=== PATIENT | female | born 1965 | race African-American/Black ===

== ENCOUNTER 2018-03-25 08:23 | Inpatient (IN) ==
[2018-03-25] MEDS ORDERED: ONDANSETRON 4 MG/2 ML VIAL IV PRN (08:59)
[2018-03-25] MEDS ORDERED: SODIUM CHLORIDE 0.9% 1,000 ML IV STA (08:59)
[2018-03-25 09:06] LABS: Basophils % 0.3 % (0.0-0.8); Eosinophils # 0.1 10*3/uL (0.0-0.87); Eosinophils % 0.6 % (0.00-10.9); Hematocrit 44.1 VOL% (35.7-47.0); Hemoglobin 15.2 GM/DL (12.0-16.0); Immature Granulocytes % 0.4 %; Immature Granulocytes Absolute 0.04 #; Lymphocytes # 3.6 10*3/uL (1.4-4.0); Lymphocytes % 36.5 % (21.3-54.2); Mean Corpuscular HGB Conc 34.5 GM/DL (32-36); Mean Corpuscular Hemoglobin 32 PG (27-34); Mean Corpuscular Volume 91.5 FL (87-102); Mean Platelet Volume 9.9 FL (9.6-12.0); Monocytes # 0.6 10*3/uL (0.11-0.8); Monocytes % 5.7 % (1.7-12.7); Neutrophils # 5.5 10*3/uL (1.4-7.4); Neutrophils % 56.5 % (38.7-73.9); Platelet Count 341 T/CUMM (130-400); Red Blood Count 4.82 MC/CUMM (3.8-5.5); Red Cell Distribution Width 12.4 % (9.3-17.3); White Blood Count 9.8 T/CUMM (4-12)
[2018-03-25 09:15] LABS: INR 0.9; PT Patient Result 9.9 SECS; Partial Thromboplastin Time 25.2 SECS (0-40)
[2018-03-25 09:25] LABS: Alanine Aminotransferase 16 U/L (13-56); Alkaline Phosphatase 169 U/L (45-117); Aspartate Amino Transferase 15 U/L (0-37); Blood Urea Nitrogen 10 MG/DL (7-18); Glucose 351 MG/DL (74-106); Potassium 3.6 MMOL/L (3.5-5.1); Sodium 136 MMOL/L (136-145)
[2018-03-25] MEDS ORDERED: GLUCAGON 1 MG VIAL IM PRN (10:48)
[2018-03-25] MEDS ORDERED: DEXTROSE 50% 25 GM/50 ML VIAL IV PRN (10:48)
[2018-03-25] MEDS ORDERED: LABETALOL 20 MG/4 ML SYRINGE IV PRN (10:51)
[2018-03-25 11:35] LABS: Risk Ratio 4.71; VLDL CHOLESTEROL 39.8 MG/DL
[2018-03-25 13:17] LABS: Barbiturates Screen,Urine Negative (Negative); Benzodiazepines Screen,Urine Negative (Negative); Cannabinoid Screen,Urine Negative (Negative); Opiate Screen,Urine Negative (Negative); Phencyclidine Screen,Urine Negative (Negative)
[2018-03-25 13:31] LABS: Apearance,Urine Slightly Hazy (Clear); Bacteria,Urine Occasional /HPF (Few); Bilirubin,Urine Negative (Negative); Blood, Urine Small mg/dL (Negative); Glucose,Urine (UA) >=500 mg/dL (Negative); Ketones,Urine 20 mg/dL (Negative); Nitrite,Urine Negative (Negative); Protein,Urine Negative; RBC,Urine 2 /HPF (0-4); Squamous Epithelial Cell,Urine Occasional /HPF (0-10); Urine Color Straw (Yellow); Urine Specific Gravity 1.039 (1.001-1.035); Urine Urobilinogen < 2.0 EU/DL (0.2-1.0); WBC,Urine 68 /HPF (0-6)
[2018-03-25] MEDS ORDERED: INFLUENZA VIRUS VACCINE 0.5 ML SYRINGE IM ONE (15:30)
[2018-03-25] MEDS: ACETAMINOPHEN 325 MG TABLET PO PRN ×2 (15:38→20:24)
[2018-03-25] MEDS: INSULIN REGULAR 100 UNIT/ML SUBCUT SCH ×3 (16:37→21:28)
[2018-03-25] MEDS: SODIUM CHLORIDE 0.9% 1,000 ML IV SCH ×2 (16:38→20:34)
[2018-03-25] MEDS: ROSUVASTATIN 20 MG TABLET PO SCH (20:24)
[2018-03-26] MEDS: ACETAMINOPHEN 325 MG TABLET PO PRN ×3 (04:11→20:26)
[2018-03-26] MEDS: SODIUM CHLORIDE 0.9% 1,000 ML IV SCH (04:12)
[2018-03-26 04:56] LABS: Basophils % 0.2 % (0.0-0.8); Eosinophils # 0.1 10*3/uL (0.0-0.87); Eosinophils % 1.3 % (0.00-10.9); Hematocrit 37.6 VOL% (35.7-47.0); Hemoglobin 12.5 GM/DL (12.0-16.0); Immature Granulocytes % 0.2 %; Immature Granulocytes Absolute 0.02 #; Lymphocytes # 3.7 10*3/uL (1.4-4.0); Lymphocytes % 42.4 % (21.3-54.2); Mean Corpuscular HGB Conc 33.2 GM/DL (32-36); Mean Corpuscular Hemoglobin 31 PG (27-34); Mean Corpuscular Volume 91.9 FL (87-102); Mean Platelet Volume 10.3 FL (9.6-12.0); Monocytes # 0.6 10*3/uL (0.11-0.8); Monocytes % 6.8 % (1.7-12.7); Neutrophils # 4.3 10*3/uL (1.4-7.4); Neutrophils % 49.1 % (38.7-73.9); Platelet Count 287 T/CUMM (130-400); Red Blood Count 4.09 MC/CUMM (3.8-5.5); Red Cell Distribution Width 12.4 % (9.3-17.3); White Blood Count 8.8 T/CUMM (4-12)
[2018-03-26 05:29] LABS: Calcium 8.5 MG/DL (8.5-10.1); Osmolality,Calculated 280.7 MOS/KG (273-304); Potassium 3.6 MMOL/L (3.5-5.1)
[2018-03-26] MEDS ORDERED: diphenhydrAMINE 50 MG/1 ML VIAL IV ONE (08:00)
[2018-03-26] MEDS ORDERED: LORazepam 2 MG/1 ML VIAL IV ONE (08:00)
[2018-03-26] MEDS: INSULIN REGULAR 100 UNIT/ML SUBCUT SCH ×4 (09:05→20:25)
[2018-03-26] MEDS: INSULIN GLARGINE 100 UNIT/ML SUBCUT SCH (09:06)
[2018-03-26] MEDS: PANTOPRAZOLE 40 MG TABLET PO SCH (09:07)
[2018-03-26] MEDS: CHOLECALCIFEROL 5,000 UNIT TABLET PO SCH (09:07)
[2018-03-26] MEDS: ASPIRIN EC 81 MG TABLET PO SCH (09:07)
[2018-03-26] MEDS: cefTRIAXone 2,000 MG in SYRINGE 1 EACH IV SCH (12:18)
[2018-03-26] MEDS: ROSUVASTATIN 20 MG TABLET PO SCH (20:25)
[2018-03-27] MEDS: ACETAMINOPHEN 325 MG TABLET PO PRN (03:52)
[2018-03-27] MEDS: INSULIN REGULAR 100 UNIT/ML SUBCUT SCH ×2 (09:08→11:42)
[2018-03-27] MEDS: PANTOPRAZOLE 40 MG TABLET PO SCH (09:09)
[2018-03-27] MEDS: INSULIN GLARGINE 100 UNIT/ML SUBCUT SCH (09:09)
[2018-03-27] MEDS: CHOLECALCIFEROL 5,000 UNIT TABLET PO SCH (09:10)
[2018-03-27] MEDS: ASPIRIN EC 81 MG TABLET PO SCH (09:10)
[2018-03-27] MEDS: cefTRIAXone 2,000 MG in SYRINGE 1 EACH IV SCH (11:41)
[2018-03-27] MEDS ORDERED: INSULIN LISPRO 100 UNIT/ML SUBCUT SCH (12:00)
[2018-03-27 12:08] VITALS: BP 139/63
[2018-03-27] MEDS ORDERED: NITROFURANTOIN MACRO/MONO 100 MG CAPSULE PO SCH (21:00)
== END 2018-03-27 13:40 | DRG 45 ==
LOC: N.ED 08:23 → N.EDINP 10:48 → SUATTDRO 10:48 → N.4E 11:53
PROVIDERS: ATTEND Hospitalist

== ENCOUNTER 2019-12-03 12:16 | Inpatient (IN) ==
[2019-12-03] MEDS ORDERED: SODIUM CHLORIDE 0.9% 1,000 ML IV STA ×2 (12:53→14:46)
[2019-12-03 13:58] LABS: Basophils # 0.1 10*3/uL (0.0-0.2); Basophils % 0.3 % (0.0-0.8); Hemoglobin 7.8 GM/DL (12.0-16.0); Immature Granulocytes Absolute 1.46 #; Lymphocytes # 1.8 10*3/uL (1.4-4.0); Lymphocytes % 3.7 % (21.3-54.2); Mean Corpuscular HGB Conc 32.5 GM/DL (32-36); Mean Corpuscular Volume 91.3 FL (87-102); Mean Platelet Volume 8.8 FL (9.6-12.0); Monocytes % 2.2 % (1.7-12.7); Neutrophils % 90.8 % (38.7-73.9); Platelet Count 436 T/CUMM (130-400); Red Blood Count 2.63 MC/CUMM (3.8-5.5)
[2019-12-03 14:12] LABS: White Blood Count 48.9 T/CUMM (4-12)
[2019-12-03 14:13] LABS: Apearance,Urine CLOUDY (Clear); Bilirubin,Urine Negative (Negative); Blood, Urine Moderate mg/dL (Negative); Glucose,Urine (UA) Negative (Negative); Ketones,Urine Negative (Negative); Nitrite,Urine Negative (Negative); Protein,Urine 100 MG/DL; Urine Color Amber (Yellow); Urine Specific Gravity 1.025 (1.001-1.035); Urine Urobilinogen < 2.0 EU/DL (0.2-1.0); WBC,Urine 3257 /HPF (0-6)
[2019-12-03] MEDS ORDERED: cefTRIAXone 1,000 MG in SODIUM CHLORIDE 0.9% 100 ML IV STA (14:19)
[2019-12-03 14:20] LABS: Alanine Aminotransferase 15 U/L (13-56); Albumin 1.6 G/DL (3.4-5.0); Alkaline Phosphatase 242 U/L (45-117); Aspartate Amino Transferase 37 U/L (0-37); Bilirubin,Total < 0.39 MG/DL (0.2-1.0); Blood Urea Nitrogen 36 MG/DL (7-18); Calcium 9.2 MG/DL (8.5-10.1); Estimated Glom Filtration Rate 49 ML/MIN; Glucose 224 MG/DL (74-106); Osmolality,Calculated 271.1 MOS/KG (273-304); Total Protein 7.7 G/DL (6.4-8.3)
[2019-12-03 14:54] LABS: Band Neutrophils 4 % (0-10); Lymphocytes 3 % (20-55); Platelet Estimate Increased; Segmented Neutrophils 91 % (50-85); Total Cells Counted 100
[2019-12-03] MEDS ORDERED: ONDANSETRON 4 MG/2 ML VIAL IV PRN (15:29)
[2019-12-03] MEDS ORDERED: DEXTROSE 50% 25 GM/50 ML VIAL IV PRN (15:29)
[2019-12-03] MEDS ORDERED: GLUCAGON 1 MG VIAL IM PRN (15:29)
[2019-12-03] MEDS: PANTOPRAZOLE 40 MG TABLET PO SCH (16:50)
[2019-12-03] MEDS: ENOXAPARIN 40 MG/0.4 ML SYRINGE SUBCUT SCH (16:51)
[2019-12-03] MEDS: SODIUM CHLORIDE 0.9% 1,000 ML IV SCH (16:51)
[2019-12-03] MEDS ORDERED: LEVOFLOXACIN INJ 750 MG in PREMIX 1 EACH IV STA (17:00)
[2019-12-03] MEDS: INSULIN LISPRO 100 UNIT/ML SUBCUT SCH ×3 (20:36→20:48)
[2019-12-03] MEDS ORDERED: SODIUM CHLORIDE 0.9% 1,000 ML IV ONE (23:39)
[2019-12-04] MEDS ORDERED: ALBUMIN 25% 50 GM in PREMIX 1 EACH IV ONE (01:37)
[2019-12-04] MEDS ORDERED: ALBUMIN 5% 25 GM in PREMIX 1 EACH IV ONE (01:41)
[2019-12-04 02:17] LABS: Basophils # 0.1 10*3/uL (0.0-0.2); Basophils % 0.3 % (0.0-0.8); Hematocrit 23.4 VOL% (35.7-47.0); Hemoglobin 7.3 GM/DL (12.0-16.0); Immature Granulocytes Absolute 1.21 #; Mean Corpuscular HGB Conc 31.2 GM/DL (32-36); Mean Corpuscular Volume 94.4 FL (87-102); Monocytes % 2.9 % (1.7-12.7); Neutrophils % 88.8 % (38.7-73.9); Platelet Count 388 T/CUMM (130-400); Red Blood Count 2.48 MC/CUMM (3.8-5.5); Red Cell Distribution Width 15.2 % (9.3-17.3)
[2019-12-04 02:18] LABS: White Blood Count 40.3 T/CUMM (4-12)
[2019-12-04 02:41] LABS: Blood Urea Nitrogen 38 MG/DL (7-18); Calcium 8.6 MG/DL (8.5-10.1); Estimated Glom Filtration Rate 46 ML/MIN; Glucose 65 MG/DL (74-106); Osmolality,Calculated 274.2 MOS/KG (273-304); Troponin I < 0.015 NG/ML (0.00-0.045)
[2019-12-04 03:17] LABS: Band Neutrophils 1 % (0-10); Lymphocytes 3 % (20-55); Platelet Estimate Normal; Segmented Neutrophils 94 % (50-85); Total Cells Counted 100
[2019-12-04 03:18] LABS: Burr Cells Few; Hypochromasia Slight; Microcytosis Slight
[2019-12-04] MEDS: SODIUM CHLORIDE 0.9% 1,000 ML IV SCH ×3 (04:27→13:28)
[2019-12-04] MEDS ORDERED: MAGNESIUM SULF RIDER 2 GM in PREMIX 1 EACH IV PRN (06:53)
[2019-12-04] MEDS: INSULIN LISPRO 100 UNIT/ML SUBCUT SCH ×3 (07:19→16:47)
[2019-12-04] MEDS ORDERED: NOREPINEPHRINE 4 MG/4 ML VIAL IV ONE ×2 (07:34→21:04)
[2019-12-04] MEDS: NOREPINEPHRINE 8 MG in SODIUM CHLORIDE 0.9% 242 ML IV PRN ×2 (07:39→21:06)
[2019-12-04] MEDS: MORPHINE 4 MG/1 ML VIAL IV PRN ×2 (07:41→14:01)
[2019-12-04] MEDS ORDERED: cefTRIAXone 1,000 MG in SYRINGE 1 EACH IV SCH (09:00)
[2019-12-04] MEDS: PANTOPRAZOLE 40 MG TABLET PO SCH (09:32)
[2019-12-04] MEDS: FLUDROCORTISONE 0.1 MG TABLET PO SCH ×2 (09:32→21:46)
[2019-12-04] MEDS ORDERED: BUPIVACAINE 0.25% /EPI 10 ML VIAL ONE (09:55)
[2019-12-04] MEDS ORDERED: LIDOCAINE 1%/EPI INJ 20 ML VIAL ONE ×2 (09:56→11:15)
[2019-12-04] MEDS: HYDROCORTISONE 100 MG VIAL IV SCH ×3 (09:56→21:50)
[2019-12-04] MEDS: VANCOMYCIN INJ 1,000 MG in SODIUM CHLORIDE 0.9% 250 ML IV SCH ×2 (09:57→21:46)
[2019-12-04] MEDS ORDERED: DEXTROSE 10% 250 ML IV ONE (10:00)
[2019-12-04] MEDS ORDERED: DEXTROSE 10% 1,000 ML IV SCH (10:30)
[2019-12-04] MEDS: DEXTROSE 10% 250 ML IV SCH ×4 (10:41→10:44)
[2019-12-04] MEDS ORDERED: BUPIVACAINE MPF 0.25% 30 ML VIAL ONE (11:15)
[2019-12-04] MEDS ORDERED: ALBUMIN 5% 12.5 GM/250 ML VIAL IV ONE (11:28)
[2019-12-04] MEDS ORDERED: KETAMINE 500 MG/10 ML VIAL ONE (12:25)
[2019-12-04] MEDS ORDERED: fentaNYL 100 MCG/2 ML VIAL ONE (12:25)
[2019-12-04] MEDS ORDERED: MIDAZOLAM 2 MG/2 ML VIAL ONE (12:25)
[2019-12-04] MEDS ORDERED: ETOMIDATE 40 MG/20 ML VIAL IV ONE (12:26)
[2019-12-04 12:31] LABS: Apearance,Urine CLOUDY (Clear); Bilirubin,Urine Negative (Negative); Blood, Urine Large mg/dL (Negative); Glucose,Urine (UA) Negative (Negative); Ketones,Urine Negative (Negative); Nitrite,Urine Negative (Negative); Protein,Urine 100 MG/DL; Squamous Epithelial Cell,Urine Few /HPF (0-10); Urine Color Yellow (Yellow); Urine Urobilinogen < 2.0 EU/DL (0.2-1.0); WBC,Urine 5446 /HPF (0-6)
[2019-12-04] MEDS ORDERED: ETOMIDATE 20 MG/10 ML VIAL IV ONE ×2 (15:22→15:30)
[2019-12-04] MEDS ORDERED: ROCURONIUM 100 MG/10 ML VIAL IV ONE ×2 (15:23→15:30)
[2019-12-04] MEDS ORDERED: HEPARIN/NACL 0.9% 2 UNITS/ML 500 ML IV ONE (15:43)
[2019-12-04] MEDS ORDERED: MIDAZOLAM 100 MG in SODIUM CHLORIDE 0.9% 80 ML IV PRN (16:00)
[2019-12-04] MEDS: ENOXAPARIN 40 MG/0.4 ML SYRINGE SUBCUT SCH (16:52)
[2019-12-04 16:58] LABS: ABG Base Excess -21.1 MMOL/L (-2.5-2.5); ABG HCO3 8.8 MMOL/L (20-26); ABG Oxygen Saturation 99.5 % (95-100); ABG PCO2 24.3 MM HG (35-48); ABG TCO2 7.2 MMOL/L (23-27); Allen Test Positive; Pt O2 Delivery Device Ventilator
[2019-12-04] MEDS ORDERED: SODIUM BICARB INJ 100 MEQ in STERILE WATER INJ 1,000 ML IV SCH (17:30)
[2019-12-04] MEDS ORDERED: AMIODARONE 150 MG/3 ML VIAL ONE (18:17)
[2019-12-04] MEDS ORDERED: AMIODARONE INJ 150 MG in DEXTROSE 5% 100 ML IV ONE (18:20)
[2019-12-04 19:42] LABS: Hematocrit 26.7 VOL% (35.7-47.0); Hemoglobin 7.8 GM/DL (12.0-16.0)
[2019-12-04] MEDS ORDERED: PHENYLEPHRINE DRIP 40 MG/250 ML PREMIX IV PRN (20:39)
[2019-12-04 20:52] VITALS: BP 86/25
[2019-12-04] MEDS ORDERED: CALCIUM CHLORIDE 1,000 MG/10 ML SYRINGE IV ONE (21:03)
[2019-12-04] MEDS ORDERED: SODIUM BICARBONATE 50 MEQ/50 ML SYRINGE IV ONE (21:03)
[2019-12-04] MEDS ORDERED: EPINEPHrine 1 MG/10 ML SYRINGE ONE ×2 (21:03)
[2019-12-04] MEDS ORDERED: EPINEPHrine 1 MG/ML VIAL ONE (21:12)
[2019-12-05] MEDS ORDERED: INSULIN LISPRO 100 UNIT/ML SUBCUT SCH
[2019-12-05] MEDS ORDERED: MULTIVITAMIN (CENTRUM) TABLET PO SCH (09:00)
[2019-12-05] MEDS ORDERED: LEVOFLOXACIN INJ 750 MG in PREMIX 1 EACH IV SCH (17:00)
== END 2019-12-04 21:25 | disposition expired | DRG 853 ==
LOC: EDBD → EDUNIT# → N.ED 12:16 → N.EDINP 15:23 → N.CVR 20:39 → N.ICU 12-04 12:10
PROVIDERS: ADMIT Internal Medicine; ATTEND Internal Medicine